=== PATIENT | female | born 1945 | race Caucasian/White ===

== ENCOUNTER 2021-12-31 11:36 | Inpatient (IN) ==
[2021-12-31] MEDS ORDERED: fentaNYL INFUSION 50 mcg/mL VL 2,500 MCG/50 ML VIAL IV SCH ×2 (12:00→12:36)
[2021-12-31 12:22] LABS: Activated Partial Thrombo Time 84.7 seconds (26.0-38.0); INR 1.85 (0.86-1.15)
[2021-12-31 12:23] LABS: PO2 Arterial 102 mmHg (80-100)
[2021-12-31 12:25] LABS: ALT 216 U/L (7-52); AST 288 U/L (13-39); Albumin 2.4 g/dL (3.2-5.2); Albumin/Globulin Ratio 1.5 (1-3); Alkaline Phosphatase 45 U/L (35-149); Anion Gap 14 mmol/L (2-11); Blood Urea Nitrogen 13 mg/dL (6-24); C Reactive Protein 1.26 mg/L (<8.01); CO2 Carbon Dioxide 22 mmol/L (22-32); Calcium 10.1 mg/dL (8.6-10.3); Chloride 103 mmol/L (101-111); Creatine Kinase 146 U/L (10-223); Globulin 1.6 g/dL (2-4); Glucose 359 mg/dL (70-100); Potassium 4.1 mmol/L (3.5-5.0); Sodium 139 mmol/L (135-145); eGFR CKD-EPI 72.4 (>60)
[2021-12-31] MEDS ORDERED: Vancomycin 1,000 MG in NS 0.9% 250 ml 250 ML IVPB ONE (12:30)
[2021-12-31] MEDS ORDERED: Piperacillin/Tazobac ADVAN 3.375 GM in NS 0.9% 100 ml BAG 100 ML IV ONE (12:30)
[2021-12-31 12:31] LABS: Troponin I 1.27 ng/mL (<0.03)
[2021-12-31 12:32] LABS: PCO2 Arterial 76 mmHg (35-45)
[2021-12-31 12:33] LABS: Hematocrit 32 % (35-47); Hemoglobin 10.1 g/dL (12.0-16.0); Mean Corpuscular HGB Conc 32 g/dL (31-36); Mean Corpuscular Hemoglobin 33 pg (27-31); Mean Corpuscular Volume 104 fL (80-97); Mean Platelet Volume 7.7 fL (7.4-10.4); Platelet Count 76 10^3/uL (150-450); Red Blood Count 3.08 10^6 /uL (3.70-4.87); Red Cell Distribution Width 14 % (10-15); White Blood Count 7.6 10^3/uL (3.5-10.8)
[2021-12-31] MEDS ORDERED: Sodium Bicarb 8.4% Vial 50 ML 150 MEQ in D5W 1000 ml BAG 850 ML IV ONE (12:33)
[2021-12-31 12:37] LABS: ABS Eosinophils 0.1 10^3/ul (0-0.6); ABS Lymphocytes 3.9 10^3/ul (1.0-4.8); ABS Monocytes 0.4 10^3/ul (0-0.8); ABS Neutrophils 3.3 10^3/ul (1.5-7.7); Eosinophil % 1.2 %; Lymphocyte % 50.5 %; RBC Morphology Normal (Normal)
[2021-12-31] MEDS ORDERED: Vasopressin 100 UNITS in D5W 250 ml BAG 245 ML IV SCH (12:45)
[2021-12-31] MEDS ORDERED: Iohexol 350 (CONTRAST) 500 ML MDV IV ONE (12:51)
[2021-12-31] MEDS ORDERED: Sodium Bicarbonate 8.4% VIAL 1 MEQ/ML 50 ml VIAL (50 meq) ONE (12:53)
[2021-12-31] MEDS ORDERED: Midazolam 50 MG VIAL IV DRIP 50 ML IV SCH (13:00)
[2021-12-31] MEDS ORDERED: Norepinephrine 16MCG/ML BAGD5W 4,000 MCG/250 ML BAG IV SCH (13:00)
[2021-12-31 13:40] LABS: PCO2 Arterial 60 mmHg (35-45)
[2021-12-31 13:51] LABS: PO2 Arterial 57 mmHg (80-100)
[2021-12-31] MEDS ORDERED: PHENYLEPHRINE DRIP IVPREMIX 50 MG/250 ML BAG IV ONE (14:11)
[2021-12-31] MEDS ORDERED: Iodixanol (CONTRAST) 320 MG/ML 100 ML SDV IV ONE (14:28)
[2021-12-31] MEDS: fentaNYL 100 mcg/2 ml 50 MCG/ML VIAL IV SLOW PU PRN ×2 (16:04→17:02)
[2021-12-31] MEDS ORDERED: Norepinephrine 16MCG/ML BAG NS 4,000 MCG/250 ML BAG IV ONE (16:14)
[2021-12-31] MEDS ORDERED: fentaNYL 100 mcg/2 ml 50 MCG/ML VIAL ONE (16:42)
[2021-12-31] MEDS ORDERED: PHENYLEPHRINE DRIP IVPREMIX 50 MG/250 ML BAG IV SCH ×2 (17:15→18:00)
[2021-12-31 17:18] LABS: Urine Color Red
[2021-12-31 17:28] LABS: Urine Red Blood Cell 3+(>10/hpf) (Absent); Urine White Blood Cell 1+(6-10/hpf) (Absent)
[2021-12-31 17:29] LABS: Urine Bacteria 1+ (Absent)
[2021-12-31] MEDS: Norepinephrine 16MCG/ML BAG NS 4,000 MCG/250 ML BAG IV SCH ×2 (17:47→19:27)
[2021-12-31 19:07] VITALS: BP 74/52
== END 2021-12-31 20:09 | disposition expired ==
LOC: ED 11:36 → EDHOLD 13:32 → ICU 15:20
PROVIDERS: ADMIT Internal Medicine Critical Care Medicine; ATTEND Hospitalist